=== PATIENT | male | born 1950 ===

== ENCOUNTER 2016-09-14 05:57 | Inpatient (IN) | payer OTHER ==
[2016-09-07 15:31] VITALS: BMI 27.0
[~2016-09-14] VITALS: Ht 175.3 cm; Wt 84.1 kg
[2016-09-14] VITALS (9 sets, daily range): BP systolic 110–166; BP diastolic 65–77; PULSE 73–105; TEMP 36.7–37.2; O2SAT 94–98; Ht 175.3 cm; Wt 84.1 kg
[~2016-09-14 05:57] MED LIST: ASPI81TA28 PO; ATOR10TA82 PO; MULT-506 PO; PANT40TA PO; RAMI10CA PO
[2016-09-14] MEDS ORDERED: LACTATED RINGER'S 1000ML 1,000 ML IV SCH (06:00)
[2016-09-14] MEDS ORDERED: CEFAZOLIN 2000 MG/60 ML D5W IV SCH (06:00)
[2016-09-14] MEDS ORDERED: MIDAZOLAM HCL 1 MG/ML 2ML VIAL ONE (06:37)
[2016-09-14] MEDS ORDERED: FENTANYL CITRATE INJ 50 MCG/1 ML 2 ML VIAL ONE ×4 (06:37→10:01)
[2016-09-14] MEDS ORDERED: BUPIVACAINE/EPINEPHRINE 0.5% MPF 1:200,000 30 ML VIAL ONE (07:02)
[2016-09-14] MEDS ORDERED: SODIUM CHLORIDE 0.9% PF 50 ML VIAL ONE (07:02)
[2016-09-14] MEDS ORDERED: BACITRACIN 50000 UNIT VIAL ONE (07:02)
--- NOTE | 2016-09-14 07:14 | History & Physical Bridge Note ---
H&P Re-Evaluation Bridge Note: I have examined the patient, reviewed the History & Physical and in the interval since the performance of the History & Physical I have noted the following changes of clinical significance: No changes noted
--- NOTE | 2016-09-14 07:15 | History and Physical ---
History & Physical Date Sep 14, 2016. Chief Complaint back and leg pain History of Present Illness The patient is a 66 year old male with complaints of Additional History Hepatic Disease: No Endocrine Disorder: No Kidney Disease: No Hypertension: No Heart Disease: No Bleeding Tendencies: No Infectious Diseases: No Allergies Coded Allergies: Molds & Smuts (Unverified Allergy, Unknown, SINUSITIS, 09/07/16) NO KNOWN DRUG ALLERGIES (Unverified Allergy, Unknown, NONE, 09/07/16) Home Medications Scheduled Aspirin (Aspirin Ec), 81 MG PO QPM Atorvastatin (Lipitor), 10 MG PO QPM Multivitamin (Multivitamin), 1 TAB PO 2XWEEK Pantoprazole (Protonix), 40 MG PO PRN Ramipril (Ramipril), 1 CAP PO QPM Physical Examination Skin: warm/dry, no rash Eyes: normal inspection, EOMI, sclerae normal ENT: normal ENT inspection, pharynx normal Head: normocephalic, atraumatic Neck: supple, no adenopathy, trachea midline Respiratory/Chest: lungs clear, normal breath sounds, no respiratory distress Cardiovascular: regular rate, rhythm, no edema, no murmur Abdomen / GI: normal bowel sounds, non tender Back: normal inspection Extremities: normal inspection, normal range of motion Neurologic/Psych: no motor/sensory deficits, alert, normal reflexes, oriented x 3 Diagnosis lumbar spinal stenosis Plan of Treatment decompression fusion L4-S1
[2016-09-14] MEDS ORDERED: HYDROmorphone INJ 2 MG/ML SYR/VIAL ONE ×2 (07:45→10:05)
[2016-09-14] MEDS ORDERED: HYDROmorphone INJ 2 MG/ML SYR/VIAL IV PRN (08:00)
[2016-09-14] MEDS ORDERED: ATROPINE SULFATE 0.1 MG/ML 5ML SYR IV PRN (08:00)
[2016-09-14] MEDS ORDERED: ONDANSETRON INJ 2 MG/ML 2 ML VIAL IV PRN ×2 (08:00→10:15)
[2016-09-14] MEDS ORDERED: EpHEDrine SULFATE INJ 50 MG/ML AMP IV PRN (08:00)
[2016-09-14] MEDS ORDERED: PHENYLEPHRINE 100MCG/ML 5ML SYR IV PRN (08:00)
[2016-09-14] MEDS ORDERED: ONDANSETRON INJ 2 MG/ML 2 ML VIAL ONE ×2 (09:09→10:06)
[2016-09-14] MEDS ORDERED: ROCURONIUM BROMIDE 10 MG/ML 5 ML VIAL ONE (09:09)
[2016-09-14] MEDS ORDERED: PHENYLEPHRINE 100MCG/ML 5ML SYR ONE (09:09)
[2016-09-14] MEDS ORDERED: DEXAMETHASONE SOD INJ 4 MG/ML VIAL ONE (09:09)
[2016-09-14] MEDS ORDERED: PROPOFOL IV EMULSION 10 MG/ML 20 ML VIAL IV ONE (09:09)
[2016-09-14] MEDS ORDERED: LIDOCAINE HCL 2% 2 ML VIAL (20MG/ML) ONE (09:09)
[2016-09-14] MEDS ORDERED: FLOSEAL HEMOSTATIC MATRIX 10ML TOP ONE (09:56)
[2016-09-14] MEDS ORDERED: SODIUM CHLORIDE 0.9% 1000ML 1,000 ML IV SCH (10:01)
--- NOTE | 2016-09-14 10:01 | [facility] Operative Report ---
Operative Report Operative Date Sep 14, 2016. Pre-Operative Diagnosis Lumbar Spinal Stenosis Post-Operative Diagnosis same Procedure(s) Performed tlif Surgeon Dr. Gilbert Allen Flow Trader Surgeon(s) Nuha Hayes PA-C Estimated Blood Loss 250mL Findings stenosis Specimens none per surgeon I attest to the content of the Intraoperative Record and any orders documented therein. Any exceptions are noted below.
[2016-09-14] MEDS ORDERED: GLYCOPYRROLATE INJ 0.2 MG/ML VIAL ONE (10:06)
[2016-09-14] MEDS ORDERED: NEOSTIGMINE METHYLSULFATE 1 MG/ML 10ML VIAL ONE (10:06)
[2016-09-14] MEDS ORDERED: PROMETHAZINE HCL INJ 12.5 MG in SODIUM CHLORIDE 0.9% 50ML 50 ML IV PRN (10:15)
[2016-09-14] MEDS ORDERED: DO NOT ADMINISTER FLU VACCINE PRN ×3 (10:15)
[2016-09-14] MEDS ORDERED: PANTOprazole SOD 40 MG TAB PO PRN (10:15)
[2016-09-14] MEDS ORDERED: hydrOXYzine HCL 25 MG TAB PO PRN (10:15)
[2016-09-14] MEDS ORDERED: DO NOT ADMINISTER PNEUMOCOCCAL VACCINE PRN ×2 (10:15)
[2016-09-14] MEDS ORDERED: ACETAMINOPHEN IV 100 ML IV PRN (10:15)
[2016-09-14] MEDS ORDERED: MAGNESIUM HYDROXIDE SUSP 30 ML UDC PO PRN (10:15)
[2016-09-14] MEDS ORDERED: LORAZEPAM INJ 0.5 MG in SYRINGE 0 ML IV PRN (10:15)
[2016-09-14] MEDS ORDERED: HYDROmorphone HCL 0.5MG/ML 50 ML CASSETTE IV PRN (10:15)
[2016-09-14] MEDS ORDERED: SOD PHOSPHATE/SOD BIPHOSPHATE ENEMA 132 ML BTL PR PRN (10:15)
[2016-09-14] MEDS ORDERED: NALOXONE HCL 0.4 MG/1 ML VIAL/CARP IV PRN ×2 (10:15)
[2016-09-14] MEDS ORDERED: FAMOTIDINE 20 MG TAB PO PRN (10:15)
[2016-09-14] MEDS ORDERED: METOCLOPRAMIDE HCL INJ 5 MG/ML 2 ML VIAL IV PRN (10:15)
[2016-09-14] MEDS ORDERED: BISACODYL 10 MG SUPP PR PRN (10:15)
[2016-09-14] MEDS ORDERED: ALUMINUM/MAGNESIUM SUSP 30 ML UDC PO PRN (10:15)
[2016-09-14] MEDS ORDERED: HYDROmorphone HCL 0.5MG/ML 50 ML CASSETTE ONE (10:22)
--- NOTE | 2016-09-14 10:31 | DIAGNOSTIC IMAGING REPORT ---
LUMBAR SPINE, INTRAOPERATIVE FLUOROSCOPY HISTORY: L4-S1 decompression and fusion. FLUOROSCOPY TIME: 31 seconds. FINDINGS: Intraoperative fluoroscopy was provided for the lumbar spine. 2 fluoroscopic spot images were obtained. L4-S1 posterior decompression fusion with pedicle screws and rods. The hardware appears intact. IMPRESSION: Fluoroscopy provided for a L4-S1 posterior decompression and fusion. Electronically signed by: Lauro Rm M.D. 09/14/2016 10:30 AM Dictated Date/Time: 09/14/2016 10:28 AM
[2016-09-14] MEDS ORDERED: NURSING VERBAL MED ORDER ONE (10:45)
--- NOTE | 2016-09-14 12:32 | OPERATIVE REPORT ---
DATE OF OPERATION: 09/14/2016 PREOPERATIVE DIAGNOSES: Spinal stenosis and spondylolisthesis. POSTOPERATIVE DIAGNOSES: Same. PROCEDURES PERFORMED: 1. Lumbar decompression, medial facetectomy, and foraminotomy, L3-L4, L4-L5, and L5-S1. 2. Posterior spinal fusion, L4-L5 and L5-S1. 3. Placement of posterior segmental instrumentation using Orthros rods and screws, L4-L5 and L5-S1. 4. Interbody fusion, L4-L5. 5. Placement of PEEK cage 11 x 22 mm at L4-L5. 6. Placement of locally harvested morcellized autograft in the posterior gutters. 7. Placement of Infuse collagen sponge combined with Mastergraft in the posterior gutters and Anayeli bone graft in the interbody space. SURGEON: Dr. Juan Allen. ENTERTAINMENT DIRECTOR: Nuha Hayes PA-C. Due to the complex nature of the procedure, the entire surgery was performed with the assistant offset press operator of Nuha Hayes PA-C. The veterinary assistant technician, under direct supervision, was involved in the actual performance of all aspects of the surgical procedure including hemostasis, tissue retraction and incision, instrument management, patient positioning, and wound closure. ANESTHESIA: General. DISPOSITION: The patient awakened and taken to PACU in stable condition. HISTORY OF PATIENT'S PROBLEMS: This is a 66-year-old male who presents with above-mentioned diagnoses. After failing an extensive course of nonoperative care, he elected to the above-mentioned procedures. Risks, benefits, pros, cons, and alternatives were outlined in detail preoperatively. DESCRIPTION OF PROCEDURE: The patient was met preoperatively, case discussed and all questions were addressed. At that point, the patient was taken back to operative suite and after undergoing successful general intubation by the department of anesthesia, he was placed in prone position on Yosvany table atop Renzo frame. All bony prominences were well padded and the eyes were inspected to ensure there was no external pressure placed upon them. At this point, lumbar spine was prepped and draped in normal sterile fashion. Sharp dissection with the assistance of Bovie cautery performed down to and exposing the lamina and transverse processes of L4, L5 and sacral ala bilaterally. From a caudal to cephalad fashion, complete laminectomy of L5, L4, partial laminectomy of L3 was performed addressing severe lateral recess stenosis as well as foraminal disease. We also performed a complete facetectomy of L4-L5 on the right, exposing a severely compressed exiting L4 nerve root with combination of facet hypertrophy and herniated disk occluding the exit. After complete decompression, pedicle screws were then placed in L4, L5 and S1 levels bilaterally with assistance of fluoroscopy and appropriate size lucas provisionally placed. Through a transforaminal approach on the right, a complete diskectomy of L4-L5 was performed, endplates curetted to subcortical bleeding bone and an 11 x 22 mm PEEK cage filled with Anayeli bone grafting tapped into position. We did attempt interbody at L5-S1; however, marked posterior calcification of the annulus prevented this. The foramina were felt to be quite patent with exploration of nerve probe. The rods were then locked into final position bilaterally and 7 flat EUGENIO drain inserted. Transverse processes of L4, L5 and sacral ala burred to subcortical bone. Infuse collagen sponge combined with Mastergraft and locally harvested morcellized autograft was placed in the posterior gutters. Incision was closed with 1-0 Vicryl in the fascia, 2-0 Vicryl subcutaneously, and 4-0 Monocryl for final skin closure. Steri-Strips and sterile dressing placed. The patient was awakened and taken to PACU in stable condition. I attest to the content of the Intraoperative Record and any orders documented therein. Any exceptions are noted below. BOOKERD
--- NOTE | 2016-09-14 13:08 | Anesthesiology Progress Note ---
Anesthesia Post Op Note Date & Time Sep 14, 2016 at 13:08 Vital Signs Pain Intensity: 4 Vital Signs Past 12 Hours Date Time Temp Pulse Resp B/P (MAP) Pulse Ox O2 Delivery O2 Flow Rate FiO2 09/14/16 12:30 105 16 127/74 (91) 94 Room Air 09/14/16 12:00 73 20 126/72 (90) 97 Room Air 09/14/16 11:21 137/85 09/14/16 11:18 77 16 09/14/16 11:18 75 16 100 09/14/16 11:16 135/77 09/14/16 11:13 80 16 09/14/16 11:13 78 16 100 09/14/16 11:12 72 16 99 09/14/16 11:12 72 16 09/14/16 11:11 146/85 09/14/16 11:07 75 14 09/14/16 11:07 73 14 100 09/14/16 11:06 135/80 09/14/16 11:05 75 15 100 09/14/16 11:05 75 15 09/14/16 11:03 36.9 09/14/16 11:01 148/90 09/14/16 11:00 71 17 99 09/14/16 11:00 73 17 09/14/16 10:59 76 16 09/14/16 10:59 75 16 100 09/14/16 10:56 127/85 09/14/16 10:54 75 18 09/14/16 10:54 75 18 100 09/14/16 10:51 149/83 09/14/16 10:49 81 16 99 09/14/16 10:49 82 16 09/14/16 10:48 80 16 09/14/16 10:48 79 16 98 09/14/16 10:46 142/82 09/14/16 10:43 74 16 100 09/14/16 10:43 75 16 09/14/16 10:41 151/90 09/14/16 10:38 83 21 100 09/14/16 10:38 83 21 09/14/16 10:36 146/87 09/14/16 10:33 81 12 09/14/16 10:33 81 12 100 09/14/16 10:31 156/85 09/14/16 10:28 87 14 100 09/14/16 10:28 85 14 09/14/16 10:26 160/79 09/14/16 10:23 90 15 09/14/16 10:23 90 15 100 09/14/16 10:21 162/95 09/14/16 10:19 147/87 09/14/16 10:18 36.9 99 16 147/87 98 Mask 10 09/14/16 06:25 36.8 75 20 166/77 98 Room Air Notes Mental Status: alert / awake / arousable, participated in evaluation Pt Amnestic to Procedure: Yes Nausea / Vomiting: adequately controlled Pain: adequately controlled Airway Patency, RR, SpO2: stable & adequate BP & HR: stable & adequate Hydration State: stable & adequate Anesthetic Complications: no major complications apparent
[2016-09-14] MEDS: LACTATED RINGER'S 1000ML 1,000 ML IV SCH ×3 (13:15→23:27)
[2016-09-14] MEDS: CEFAZOLIN IV 2,000 MG in DEXTROSE 5% 50ML 50 ML IV SCH ×2 (16:18→23:27)
[2016-09-14] MEDS: DEXAMETHASONE INJ 6 MG in SYRINGE 0 ML IV SCH (16:31)
[2016-09-14] MEDS: ENALAPRIL MALEATE 10 MG TAB PO SCH (21:18)
[2016-09-14] MEDS: ASPIRIN 81 MG ECTAB PO SCH (21:18)
[2016-09-14] MEDS: ATORVASTATIN 10 MG TAB PO SCH (21:18)
[2016-09-14] MEDS: DOCUSATE SODIUM/SENNA 50/8.6MG TAB PO SCH (21:19)
[2016-09-14] MEDS: LORAZEPAM 0.5 MG TAB PO PRN (23:27)
[2016-09-15] MEDS: DEXAMETHASONE INJ 6 MG in SYRINGE 0 ML IV SCH ×2 (00:52→08:57)
[2016-09-15] MEDS: LORAZEPAM 0.5 MG TAB PO PRN (00:56)
[2016-09-15 03:00] VITALS: BP 121/64; PULSE 68; TEMP 36.9; O2SAT 95
[2016-09-15] MEDS ORDERED: NURSING VERBAL MED ORDER ONE (05:45)
[2016-09-15] MEDS ORDERED: HYDROmorphone INJ 1 MG/ML SYR IV PRN (06:00)
[2016-09-15] MEDS ORDERED: DC PCA ONE (06:00)
[2016-09-15] MEDS ORDERED: OXYCODONE HCL IR 5 MG TAB (IMMEDIATE RELEASE) PO PRN (06:00)
[2016-09-15 07:17] VITALS: BP 104/57; PULSE 59; TEMP 36.7; O2SAT 96
[2016-09-15 07:47] LABS: COMPLETE YES; HEMATOCRIT 35.9 % (42-52); IG% 0.3 %; LYMPH % 4.6 %; LYMPH ABS # 0.69 K/uL (1.2-3.4); MEAN CELL VOLUME 90.7 fL (80-100); MEAN CORPUSCULAR HEMOGLOBIN 31.3 pg (25-34); MEAN CORPUSCULAR HGB CONC 34.5 g/dl (32-36); MEAN PLATELET VOLUME 10.7 fL (7.4-10.4); NEUT % 90.1 %; PLATELET COUNT 212 K/uL (130-400); RED BLOOD COUNT 3.96 M/uL (4.7-6.1); WHITE BLOOD COUNT 14.91 K/uL (4.8-10.8)
[2016-09-15] MEDS: ACETAMINOPHEN 500 MG TAB PO PRN ×2 (07:54→21:52)
--- NOTE | 2016-09-15 07:59 | Anesthesiology Progress Note ---
Anesthesia Post Op Note Date & Time Sep 15, 2016 at 07:59 Vital Signs Pain Intensity: 5.0 Vital Signs Past 12 Hours Date Time Temp Pulse Resp B/P (MAP) Pulse Ox O2 Delivery O2 Flow Rate FiO2 09/15/16 07:17 36.7 59 16 104/57 (73) 96 Room Air 09/15/16 03:00 36.9 68 16 121/64 (83) 95 Room Air 09/14/16 23:32 Room Air 09/14/16 22:50 36.8 89 16 131/65 (87) 96 Room Air Notes Mental Status: alert / awake / arousable, participated in evaluation Pt Amnestic to Procedure: Yes Nausea / Vomiting: adequately controlled Pain: adequately controlled Airway Patency, RR, SpO2: stable & adequate BP & HR: stable & adequate Hydration State: stable & adequate Anesthetic Complications: no major complications apparent
[2016-09-15 08:23] LABS: BUN/CREATININE RATIO 13.3 (10-20); CREATININE 0.92 mg/dl (0.60-1.40); POTASSIUM 4.2 mmol/L (3.5-5.1)
[2016-09-15 08:28] LABS: CALCIUM 8.2 mg/dl (8.5-10.1)
[2016-09-15 09:59] VITALS: BP 126/54; PULSE 73; O2SAT 97
[2016-09-15] MEDS ORDERED: RXC5 PO (10:52)
--- NOTE | 2016-09-15 10:53 | Discharge Instructions ---
Discharge Instructions Date of Service Sep 15, 2016. Admission Reason for Admission: Lumbar Spinal Stenosis Discharge Discharge Diagnosis / Problem: stenossi Discharge Goals Goal(s): Improve function Activity Recommendations Activity Limitations: per Instructions/Follow-up section . Instructions / Follow-Up Instructions / Follow-Up ACTIVITY RECOMMENDATIONS: SELF CARE INSTRUCTIONS AFTER THORACIC/LUMBAR FUSIONS 1. You may walk to your tolerance. It is good exercise for your legs and back. Expect some back and intermittent leg aches and pains. 2. You may perform "counter-top" level activities (make a sandwich, [place] with a project, etc.). 3. No bending or lifting of more than 10 pounds or back twisting of any nature (roll like a log when turning in bed). 4. You may ride in a car for 20-30 minutes at a time. No driving until after your first visit with your doctor. 5. Frequent changes of position and restricting sitting to 30 minutes at a time will help limit the amount of back spasms and stiffness you may experience. 6. You may discontinue the use of ambulatory aids (cane, crutches, etc.) once your strength and confidence allow. 7. You may aluminum welder the shower and let water strike your incision when you arrive home at least once daily. Do not take a tub bath, sit in a hot tub or go into a swimming pool until after your first recheck in the office. SPECIAL CARE INSTRUCTIONS: VERY IMPORTANT TO READ AND REVIEW A. Your surgical incision has been closed with a cosmetic suture under the skin that will dissolve in about 6 weeks. In 14 days, you can use a pair of clean scissors and cut the suture that is left outside of the skin at the ends of your incision. 1. The small skin tapes can be removed 7 days after surgery if they have not fallen off by that point. 2. You may keep the wound open to air as much as possible to promote healing after post-op day number 5 unless told otherwise by your doctor. 3. If you think the wound looks like it is becoming infected (redness or worsening drainage) and/or you are experiencing fever, chill or worsening back pain and muscle spasms, contact the office so that we may evaluate you as soon as possible. B. Complications are uncommon, but please contact us if you have any signs or symptoms of: 1. wound infection (fever higher than 102.5 degrees F, redness, separation of wound, drainage, or increasing pain from the incision) 2. blood clots in legs (pain, swelling, redness and warmth in legs) 3. urinary tract infection (fever higher than 102.5 degrees F, burning upon urination or increased frequency of urination) 4. nerve problems (inability to walk on your toes or heels, numbness, loss of bowel or bladder control) 5. any other symptoms that concern you C. Please call the office at if you have any concerns or questions about your operation or recovery. D. No smoking! Smoking drastically decreases the chance of a solid fusion. E. Do not take any anti-inflammatory medications (Indocin, Advil, Motrin, Aspirin, Naprosyn, etc.) as these may inhibit the chance of a solid fusion. Tylenol is okay to take for pain. MANAGING PAIN AFTER SPINAL SURGERY 1. Narcotic medication is intended for short-term use and will be provided for surgical pain. Surgical pain usually lasts for a period of 4-6 weeks. Narcotic medication includes Percocet, Vicodin, Darvocet, Tylenol #3 or Lortab. 2. Longer-term pain is more appropriately treated with non-narcotic medication such as Tylenol ES. 3. Muscle spasm is not appropriately treated with narcotics. Muscle relaxers such as Soma, Flexeril or Skelaxin can be used along with Tylenol ES. 4. Remember that we all live with some "aches and pains". This is not unusual or uncommon after an injury or as we get older. a. Back pain is expected and may include muscle spasms for 4 to 6 weeks after surgery. The pain should gradually improve. If the pain worsens for no apparent reason, please contact the office. b. Intermittent leg pain may also be experienced and should not be concerned about unless it worsens for no apparent reason. If so, please contact the office. 5. We will provide appropriate medication within the normal guidelines of their prescribed use. We will also be very cautious and aware of potential abuse and extended duration of patients' medication needs. a. Pain medications are for your comfort and to assist with sleep and rest so that the tissue can heal. They are not provided in order to return to normal activity and should not be used through the day. To do so or worsening pain at night can result from ongoing tissue damage and development of tolerance to the prescribed medicine. 6. Please allow 2-3 days to process refills. Prescriptions will not be mailed but must be picked up at the office. FOLLOW UP VISIT: Keep your scheduled follow-up appointment. Any questions, please call the office at . Current Hospital Diet Patient's current hospital diet: Regular Diet Discharge Diet Recommended Diet: Regular Diet Procedures Procedures Performed: L4-S1 Lumbar Laminectomy, Decompression; Pedicle Screw Fixation; Placement of Interbody Device L4-L5; L4-S1 Posterolateral Fusion; Application of Allograft; Bone Morphogenetic Protein Pending Studies Studies pending at discharge: no Medical Emergencies . Who to Call and When: Medical Emergencies: If at any time you feel your situation is an emergency, please call 911 immediately. . Non-Emergent Contact Non-Emergency issues call your: Primary Care Provider . "Provider Documentation" section prepared by Juan Allen. . VTE Core Measure Inpt VTE Proph given/why not?: Joaquin Robbins, SCD's
--- NOTE | 2016-09-15 11:42 | PROGRESS NOTE ---
DATE: 09/15/2016 DATE: 09/15/2016. SUBJECTIVE: Postop day 1. Back pain controlled. Leg pain markedly improved. Vital signs stable. T-max 36.9. EUGENIO drained 140 mL. Hematocrit this a.m. is 35.9. OBJECTIVE: On exam he is in chair at bedside. Demonstrates good strength to testing. Appears comfortable. ASSESSMENT: Status post lumbar decompression and fusion. PLAN: At this time, will initiate physical therapy and advance his bowel regimen, anticipate home Monday or Monday.
[2016-09-15] MEDS: KETOROLAC TROMETHAMINE 15 MG/ML VIAL IV. PRN ×2 (11:59→21:52)
[2016-09-15 15:40] VITALS: BP 120/69; PULSE 63; TEMP 36.8; O2SAT 97
[2016-09-15] MEDS: ASPIRIN 81 MG ECTAB PO SCH (21:17)
[2016-09-15] MEDS: ENALAPRIL MALEATE 10 MG TAB PO SCH (21:18)
[2016-09-15] MEDS: ATORVASTATIN 10 MG TAB PO SCH (21:18)
[2016-09-15] MEDS: DOCUSATE SODIUM/SENNA 50/8.6MG TAB PO SCH (21:18)
[2016-09-15] MEDS: ZOLPIDEM TARTRATE 10 MG TAB PO PRN (21:51)
[2016-09-15 23:18] VITALS: BP 115/61; PULSE 66; TEMP 36.7; O2SAT 98
[2016-09-16] MEDS: POLYETHYLENE (MIRALAX) 17 GM PACK PO SCH ×2 (05:34→12:00)
[2016-09-16 07:02] VITALS: BP 142/82; PULSE 65; TEMP 36.7; O2SAT 98
[2016-09-16] MEDS: KETOROLAC TROMETHAMINE 15 MG/ML VIAL IV. PRN ×3 (09:23→22:18)
[2016-09-16] MEDS: ACETAMINOPHEN 500 MG TAB PO PRN ×2 (09:23→22:17)
[2016-09-16] MEDS ORDERED: NURSING VERBAL MED ORDER ONE (12:15)
[2016-09-16 14:53] VITALS: BP 135/79; PULSE 66; TEMP 36.7; O2SAT 98
--- NOTE | 2016-09-16 17:27 | PROGRESS NOTE ---
DATE: 09/16/2016 SUBJECTIVE: Postop day #2. Back pain controlled. Leg pain improved. Vital signs stable. T-max 36.7. EUGENIO drained 135 mL. Bowels working well. On exam, he is sitting in chair at bedside. Has good strength to testing. Does stand and ambulate without difficulty. ASSESSMENT: Status post lumbar decompression and fusion. PLAN: At this time, will maintain the EUGENIO drain another 24 hours and anticipate home tomorrow.
[2016-09-16] MEDS: ENALAPRIL MALEATE 10 MG TAB PO SCH (20:50)
[2016-09-16] MEDS: DOCUSATE SODIUM/SENNA 50/8.6MG TAB PO SCH (20:50)
[2016-09-16] MEDS: ATORVASTATIN 10 MG TAB PO SCH (20:50)
[2016-09-16] MEDS: ASPIRIN 81 MG ECTAB PO SCH (20:50)
[2016-09-16] MEDS: ZOLPIDEM TARTRATE 10 MG TAB PO PRN (22:17)
[2016-09-16 23:02] VITALS: BP 123/67; PULSE 64; TEMP 36.6; O2SAT 97
[2016-09-17 07:48] VITALS: BP 144/88; PULSE 52; TEMP 36.7; O2SAT 96
[2016-09-17 08:09] VITALS: O2SAT 96
[2016-09-17] MEDS: ACETAMINOPHEN 500 MG TAB PO PRN (09:47)
[2016-09-17 10:20] VITALS: BP 144/88; PULSE 52; TEMP 36.7; O2SAT 96
--- NOTE | 2016-09-17 18:49 | DISCHARGE SUMMARY ---
PRINCIPAL DIAGNOSIS: Spinal stenosis. HOSPITAL COURSE: On 09/14, the patient underwent lumbar decompression and fusion, tolerated this well and taken to the orthopedic floor postoperatively. Postop day #1, he was up and ambulatory. Leg pain improved and progressed to postop day #2. On postop day #3, EUGENIO drain decreased appropriately, pain well controlled, discharged home. Discharge orders and instructions found on the chart for further review. LUI
== END 2016-09-17 11:13 | disposition home or self-care (01) | DRG 460 ==
LOC: C.ACU 05:57 → C.MSW 10:04 → ENRESERV 11:14
PROVIDERS: ADMIT Orthopaedic Surgery Orthopaedic Surgery of the Spine; ATTEND Orthopaedic Surgery Orthopaedic Surgery of the Spine
PROC: 0SG00AJ Fusion of Lumbar Vertebral Joint with Interbody Fusion Device, Posterior Approach, Anterior Column, Open Approach (ICD-10-PCS; principal; 2016-09-14 07:45)
PROC: 0ST20ZZ Resection of Lumbar Vertebral Disc, Open Approach (ICD-10-PCS; principal; 2016-09-14 07:45)
PROC: 01NB0ZZ Release Lumbar Nerve, Open Approach (ICD-10-PCS; principal; 2016-09-14 07:45)
PROC: 0SG0071 Fusion of Lumbar Vertebral Joint with Autologous Tissue Substitute, Posterior Approach, Posterior Column, Open Approach (ICD-10-PCS; principal; 2016-09-14 07:45)
PROC: 0SG3071 Fusion of Lumbosacral Joint with Autologous Tissue Substitute, Posterior Approach, Posterior Column, Open Approach (ICD-10-PCS; principal; 2016-09-14 07:45)
PROC: 3E0U0GB Introduction of Recombinant Bone Morphogenetic Protein into Joints, Open Approach (ICD-10-PCS; principal; 2016-09-14 07:45)
DX: M48.06 Spinal stenosis, lumbar region (principal); M51.26 Other intervertebral disc displacement, lumbar region; M43.16 Spondylolisthesis, lumbar region; I10 Essential (primary) hypertension; E78.5 Hyperlipidemia, unspecified; K21.9 Gastro-esophageal reflux disease without esophagitis; M19.90 Unspecified osteoarthritis, unspecified site; G47.33 Obstructive sleep apnea (adult) (pediatric); Z99.89 Dependence on other enabling machines and devices; Z79.82 Long term (current) use of aspirin; Z79.899 Other long term (current) drug therapy